=== PATIENT | female | born 1965 | race African-American/Black ===

== ENCOUNTER 2017-03-16 21:48 | Emergency (ER) | payer SELFPAY ==
[~2017-03-16] VITALS: Ht 160 cm; Wt 59.0 kg
[2017-03-17] MEDS ORDERED: KETOROLAC 30MG/ML VIAL IV STA
[2017-03-17] MEDS ORDERED: ONDANSETRON HCL 4MG/2ML VIAL IV STA
[2017-03-17] MEDS ORDERED: SODIUM CHLORIDE 0.9% 1,000 ML IV ONE
[2017-03-17 00:07] VITALS: BP 131/76
== END 2017-03-17 00:31 | disposition home or self-care (01) ==
LOC: ER 22:24
DX: R10.33 Periumbilical pain (principal); R11.2 Nausea with vomiting, unspecified
CPT/HCPCS: 99283; J7030